=== PATIENT | male | born 1985 | race Two or more races ===

== ENCOUNTER 2016-05-22 04:22 | Emergency (ER) | payer MEDICAID ==
--- NOTE | 2016-05-22 04:41 | Emergency Department Record ---
History of Present Illness - General Chief Complaint: Altered Mental Status Stated Complaint: ALTERED LOC Time Seen by Provider: 05/22/16 04:22 Source: Patient, Family Mode of Arrival: EMS Limitations: No limitations - History of Present Illness Initial Comments: The patient is here due to not feeling well since last evening. He developed vomiting and diarrhea starting at 6:30 last evening and had multiple episodes of each. At about 3:30 am he became unresponsive per his fiance and she found him slumped over and not moving his R side. He last was seen normal by her at 9: 30 pm. EMS was called and they found the patient with a BS of about 200 and with a depressed mental status. They administered 4 mg of narcan and the patient did become slightly more responsive. The patient at that time was very diaphoretic and not answering questions. The patient now is here in the ER and is not talking but again is very diaphoretic. He has vomited once in the ED. The patient did have a similar episode of diaphoresis with chest pain about 10 months ago. MD Complaint: Altered mental status, Confusion, Decreased responsiveness Onset/Timin -: Minutes(s) Associated Symptoms: Weakness Treatments Prior to Arrival: IV fluid - [place] Coma Scale Eye Response: (3) Open to voice Motor Response: (4) Withdraws to pain Verbal Response: (1) No verbal response Stark Total: 8 - Symptoms of Stroke Symptoms of stroke: Dizziness - Related Data Previous Rx's Medication Instructions Recorded Atorvastatin Calcium [Lipitor] 40 mg PO DAILY #30 tab 11/24/15 Metformin HCl [Glucophage Ir] 1,000 mg PO BID #0 tablet 11/24/15 Allergies Allergy/AdvReac Type Severity Reaction Status Date / Time No Known Drug Allergies Allergy Unverified 12/18/15 09:26 Travel Screening - Travel/Exposure Within Last 30 Days Have you traveled within the last 30 days?: No - Travel/Exposure Within Last Year Have you traveled outside the [place] in the last year?: No - Travel Symptoms Symptom Screening: None Review of Systems Constitutional: Denies: Chills, Fever Eyes: Denies: Eye discharge ENT: Denies: Congestion Respiratory: Denies: Cough, Dyspnea Cardiovascular: Denies: Chest pain Endocrine: Denies: Fatigue Gastrointestinal: Reports: Diarrhea, Vomiting Genitourinary: Denies: Dysuria Musculoskeletal: Denies: Arthralgia Skin: Denies: Bruising Past Medical History - SOCIAL HISTORY Smoking Status: Current every day smoker - RESPIRATORY Hx Respiratory Disorders: Yes Comment:: chronic sinusitis - CARDIOVASCULAR Hx Cardio Disorders: Yes Hx Heart Attack: Yes (states 5 months ago) Hx Hypertension: Yes Comment:: fiance states heart attack 5 months ago no intervention because test neg - NEURO Hx Neuro Disorders: No - GI Hx GI Disorders: No Hx Reflux: Yes - Hx Genitourinary Disorders: No - ENDOCRINE Hx Endocrine Disorders: Yes Hx Diabetes: Yes Comment:: blood sugars with meds in the 200's - MUSCULOSKELETAL Hx Musculoskeletal Disorders: Yes Hx Arthritis: Yes Comment:: Ganglion cyst R wrist; carpal tunnel - PSYCH Hx Psych Problems: Yes Hx Anxiety: Yes Hx Depression: Yes - HEMATOLOGY/ONCOLOGY Hx Hematology/Oncology Disorders: No Family Medical History Any Significant Family History?: No Hx Cancer: Brother/Sister Hx Heart Disease: Mother, Brother/Sister, Grandparents *Heart Comment: Sister was 29 Physical Exam - General General Appearance: Alert (The patient's eyes are open, he is not talking or answering questions but he is moving his L arm and leg much better than his R side.), No acute distress (The patient is very diaphoretic.) - Head Head exam: Atraumatic, Normocephalic, Normal inspection - Eye Eye exam: Normal appearance. negative: PERRL (The R pupil is sluggish to react. ) - Neck Neck exam: Normal inspection, Full ROM. negative: Tenderness - Respiratory Respiratory exam: Normal lung sounds bilaterally. negative: Respiratory distress - Cardiovascular Cardiovascular Exam: Regular rate, Normal rhythm, Normal heart sounds - GI/Abdominal GI/Abdominal exam: Soft, Normal bowel sounds. negative: Tenderness - Extremities Extremities exam: Normal inspection, Full ROM, Normal capillary refill. negative: Tenderness - Neurological Neurological exam: Abnormal gait, Alert, Motor sensory deficit (The patient is moving his L arm and leg spontaneously but not his R. His R arm he is holding in spasm at times and he is moving his R leg very little.). negative: Normal gait, Oriented X3 - Psychiatric Psychiatric exam: Agitated. negative: Anxious, Depressed - Skin Skin exam: Diaphoretic. negative: Rash Course Vital Signs 05/22/16 04:26 Temperature 99.2 F Pulse Rate 105 H Respiratory 24 Rate Blood Pressure 140/89 Pulse Ox 98 - Reevaluation(s) Reevaluation #1: The patient's status has not changed during the hour he has been in the ER. I do believe the patient has had a R sided CVA due to the aphasia and lack of movement of his R side. Due to there being no clear timeline as to when the CVA started I do not believe the patient is a TPA candidate but he could be a good candidate for intervention by the Stroke team at [facility]. I did discuss the case with Dr. Torres at [facility] and she would like the patient sent directly to the ER at [facility] for further intervention. I also discussed the case with Dr. Radford and she does accept the patient to the ER. 05/22/16 05:38 Reevaluation #2: At discharge the patient's condition was not changed. His BP was stable. He did have his eyes open spontaneously and was moving his L side normally and purposefully but the R side was clearly not normal. His R arm was held in a decerebrate posture and he was not moving his R leg at all. The patient was also still aphasic. The patient was breathing spontaneously with a normal biox. 05/22/16 05:51 Medical Decision Making - Data Complexity MDM Data: Labs Ordered and/or Reviewed, X-Ray Ordered and/or Reviewed, EKG Ordered and/or Reviewed - Lab Data Result diagrams: 05/22/16 04:48 05/22/16 04:48 Lab Results 05/22/16 Range/Units 04:35 POC Glucose 236 H (70-110) mg/dL - EKG Data -: EKG Interpreted by Me EKG: No Acute Changes, Unchanged From Previous - Radiology Data Radiology results: Report reviewed (Head CT: No acute changes.) Disposition Disposition: Transfer Clinical Impression: CVA (cerebral vascular accident) Qualifiers: CVA mechanism: other Qualified Code(s): I63.8 - Other cerebral infarction Disposition: Acute Care Hospital Transfer Transfer To: [facility] Reason For Transfer: Stroke team. Accepting Physician: Melissa Time Discussed w/Accepting Physician: 05:41 Condition: (2) Stable Forms: Patient Portal Access Time of Disposition: 05:41
[2016-05-22] MEDS ORDERED: ONDANSETRON HCL IV 4 MG/2 ML VIAL IVP ONE (04:46)
[2016-05-22] MEDS ORDERED: 0.9 % SODIUM CHLORIDE 1,000 ML BAG IV ONE (04:46)
[2016-05-22 05:00] LABS: HEMATOCRIT 43.8 % (42.0-52.0); HEMOGLOBIN 15.3 gm/dl (14.0-18.0); MEAN CELL VOLUME 85.5 fl (81-97); MEAN CORPUSCULAR HEMOGLOBIN 29.9 pg (27-33); MEAN CORPUSCULAR HGB CONC 34.9 g/dl (32-36); MEAN PLATELET VOLUME 8.7 fl (7.4-10.4); PLATELET COUNT 404 K/uL (130-400); RED BLOOD COUNT 5.12 M/uL (4.40-5.70); RED CELL DISTRIBUTION WIDTH 12.4 % (11.5-14.5); WHITE BLOOD COUNT W/O DIFF 14.5 K/uL (4.2-12.2)
[2016-05-22 05:11] LABS: ANION GAP 17.3 (7-16); BLOOD UREA NITROGEN 14 mg/dL (9-20); CARBON DIOXIDE 21.7 mmol/L (22-30); CREATINE PHOSPHOKINASE 238 U/L (55-170); EST GLOMERULAR FILTRATION RATE > 60 ml/min; GLUCOSE,RANDOM 227 mg/dL (70-110)
[2016-05-22 05:12] LABS: INR 1.06; PARTIAL THROMBOPLASTIN TIME 23.7 SECONDS (24.5-39.1)
[2016-05-22 05:23] LABS: CKMB 0.7 ug/L (0-6)
[2016-05-22 05:26] LABS: TROPONIN I < 0.012 ng/mL (0.00-0.034)
--- NOTE | 2016-05-25 08:32 | CT SCAN REPORT ---
EXAM: CT OF THE HEAD WITHOUT CONTRAST HISTORY: ALTERED MENTAL STATUS. CONFUSION. TECHNIQUE: Routine noncontrast CT examination of the head was performed. Comparison: CT of the facial bones with contrast dated 11/22/15. FINDINGS: The examination is mildly limited by patient motion. The ventricles and subarachnoid spaces are normal in size. No definite area of abnormally increased or decreased attenuation is noted throughout the brain substance. The boucher white interface on images unaffected by patient motion are distinct. No definite abnormal extraaxial fluid collection is seen. No skull fracture is identified. A retention cyst is again suggested within the left maxillary sinus. Mild mucosal thickening in the floor of the right maxillary sinus. IMPRESSION: 1. EXAM LIMITED BY PATIENT MOTION. 2. NO CT EVIDENCE OF AN ACUTE INTRACRANIAL ABNORMALITY NOR SKULL FRACTURE. 3. RETENTION CYST REDEMONSTRATED IN THE LEFT MAXILLARY SINUS. MINOR MUCOSAL THICKENING IN EACH MAXILLARY SINUS. JOB NUMBER: [id number] MTDD
== END 2016-05-22 05:52 | disposition short-term general hospital (02) ==
LOC: ER 04:22
DX: I63.8 Other cerebral infarction (principal); R47.01 Aphasia; R61 Generalized hyperhidrosis; R19.7 Diarrhea, unspecified; R42 Dizziness and giddiness; R11.11 Vomiting without nausea; I10 Essential (primary) hypertension; F17.210 Nicotine dependence, cigarettes, uncomplicated; E11.9 Type 2 diabetes mellitus without complications; I25.2 Old myocardial infarction; Z87.891 Personal history of nicotine dependence
CPT/HCPCS: 99285 ×2; 96374; 96361; 82550; 85730; 85610; 82553; 84484; 80048; 36416; 82009; 82948; 85027; 70450; 93005; 93010; J2405; J7030